=== PATIENT | male | born 1955 | race American Indian/Alaskan Native ===

== ENCOUNTER 2017-04-09 18:04 | Emergency (ER) | payer BC ==
[2017-04-09 18:37] LABS: Basophils % (Auto) 0.8 % (0.0-1.8); Eosinophils % (Auto) 1.9 % (0.0-4.3); Hematocrit 42.4 % (35.5-45.6); Mean Corpuscular HGB Conc 33 % (32-34); Mean Corpuscular Hemoglobin 30 pg (28-32); Mean Corpuscular Volume 92 fl (84-94); Platelet Count 239 K/mm3 (140-440); Red Blood Count 4.63 M/mm3 (3.65-5.03); Red Cell Distribution Width 13.5 % (13.2-15.2); White Blood Count 5.1 K/mm3 (4.5-11.0)
[2017-04-09 18:58] LABS: Anion Gap 20 mmol/L; BUN/Creatinine Ratio 13; Blood Urea Nitrogen 16 mg/dL (9-20); Calcium 9.6 mg/dL (8.4-10.2); Carbon Dioxide 28 mmol/L (22-30); Chloride 99.7 mmol/L (98-107); Glucose 144 mg/dL (75-100); Potassium 3.8 mmol/L (3.6-5.0); Sodium 144 mmol/L (137-145)
--- NOTE | 2017-04-09 20:55 | Emergency Department Report ---
ED Syncope HPI - General Chief Complaint: Weakness Stated Complaint: DIZZINESS Time Seen by Provider: 04/09/17 20:17 Source: patient - History of Present Illness Initial Comments: 62 yo male who comes in today due to a syncopal episode. The patient states that he ate some mayonnaise that hadn't been refrigerated around 1530 with his sandwich at lunch on today. Around 1730, he noticed that he felt lightheaded, dizzy, and hot. He went outside to try and cool off and then had a lucid interval. A coworker called out to him, and he recalls the coworker speaking. He was dazed and couldn't answer at that point. EMS was called. Admits to a history of hypertension. He later stated that he had nausea and diarrhea with the episode. One episode of diarrhea in the ED. Precipitating Factors: Positive: other (sandwich with calvo at lunch on today ) Context: sitting Loss of Consciousness: dazed Current Symptoms: back to normal - Related Data Allergies/Adverse Reactions: Allergies No Known Allergies Allergy (Unverified 04/09/17 18:07) Home Medications: Ambulatory Orders Ondansetron [Zofran Odt] 4 mg PO Q6HR PRN #20 tab.rapdis 04/09/17 ED Review of Systems ROS: Stated complaint: DIZZINESS Other details as noted in HPI Constitutional: denies: chills, fever Eyes: denies: eye pain, eye discharge, vision change ENT: denies: ear pain, throat pain Respiratory: denies: cough, shortness of breath, wheezing Cardiovascular: denies: chest pain, palpitations Endocrine: no symptoms reported Gastrointestinal: as per HPI, nausea, vomiting, diarrhea Genitourinary: denies: urgency, dysuria Musculoskeletal: denies: back pain, joint swelling, arthralgia Skin: denies: rash, lesions Neurological: denies: headache, weakness, paresthesias Psychiatric: denies: anxiety, depression Hematological/Lymphatic: denies: easy bleeding, easy bruising ED Past Medical Hx - Past Medical History Previous Medical History?: Yes Hx Hypertension: Yes - Surgical History Past Surgical History?: No - Social History Smoking Status: Never Smoker Substance Use Type: None - Medications Home Medications: Home Medications Medication Instructions Recorded Confirmed Last Taken Type Ondansetron [Zofran Odt] 4 mg PO Q6HR PRN #20 tab.rapdis 04/09/17 Unknown Rx ED Physical Exam - General Limitations: No Limitations General appearance: alert, in no apparent distress - Head Head exam: Present: atraumatic, normocephalic - Eye Eye exam: Present: normal appearance - ENT ENT exam: Present: mucous membranes moist - Neck Neck exam: Present: normal inspection - Respiratory Respiratory exam: Present: normal lung sounds bilaterally. Absent: respiratory distress - Cardiovascular Cardiovascular Exam: Present: regular rate, normal rhythm. Absent: systolic murmur, diastolic murmur, rubs, gallop - GI/Abdominal GI/Abdominal exam: Present: soft, normal bowel sounds - Extremities Exam Extremities exam: Present: normal inspection - Back Exam Back exam: Present: normal inspection - Neurological Exam Neurological exam: Present: alert, oriented X3 - Psychiatric Psychiatric exam: Present: normal affect, normal mood - Skin Skin exam: Present: warm, dry, intact, normal color. Absent: rash ED Course Vital Signs 04/09/17 04/09/17 04/09/17 18:08 18:09 18:16 Temperature 97.9 F Pulse Rate 80 83 Respiratory 18 18 18 Rate Blood Pressure 145/79 145/79 Blood Pressure [Right] O2 Sat by Pulse 96 98 Oximetry 04/09/17 04/09/17 04/09/17 18:26 18:30 18:46 Temperature 98.7 F Pulse Rate 81 85 81 Respiratory 18 12 17 Rate Blood Pressure 135/79 145/79 Blood Pressure 149/79 [Right] O2 Sat by Pulse 100 96 Oximetry 04/09/17 04/09/17 04/09/17 19:00 19:16 19:30 Temperature Pulse Rate 85 87 83 Respiratory 12 18 14 Rate Blood Pressure 133/76 133/76 135/79 Blood Pressure [Right] O2 Sat by Pulse 97 98 98 Oximetry 04/09/17 04/09/17 04/09/17 19:46 20:00 20:16 Temperature Pulse Rate 83 87 84 Respiratory 15 11 L 15 Rate Blood Pressure 135/79 138/81 138/81 Blood Pressure [Right] O2 Sat by Pulse 99 96 99 Oximetry 04/09/17 04/09/17 04/09/17 20:30 20:46 21:00 Temperature Pulse Rate 86 94 H 83 Respiratory 11 L 20 19 Rate Blood Pressure 126/85 126/85 137/81 Blood Pressure [Right] O2 Sat by Pulse 96 97 98 Oximetry 04/09/17 04/09/17 04/09/17 21:36 21:46 22:00 Temperature Pulse Rate 78 78 73 Respiratory 14 17 9 L Rate Blood Pressure 126/85 126/85 134/84 Blood Pressure [Right] O2 Sat by Pulse 97 98 Oximetry 04/09/17 04/09/17 22:16 22:30 Temperature Pulse Rate 69 66 Respiratory 17 14 Rate Blood Pressure 134/84 134/84 Blood Pressure [Right] O2 Sat by Pulse 98 97 Oximetry - Reevaluation(s) Reevaluation #1: 04/09/17 23:18 No nausea, vomiting, or diarrhea noted currently. Home today with zofran. ED Medical Decision Making - Lab Data Result diagrams: 04/09/17 18:18 04/09/17 18:18 - EKG Data EKG shows normal: sinus rhythm Rate: normal - EKG Data When compared to previous EKG there are: previous EKG unavailable Interpretation: nonspecific ST-T wave mike - Radiology Data Radiology results: report reviewed CT head-no acute changes CXR-no acute changes - Medical Decision Making Food poisoning Gastroenteritis - Differential Diagnosis Food poisoning, gastroenteritis Critical care attestation.: If time is entered above; I have spent that time in minutes in the direct care of this critically ill patient, excluding procedure time. ED Disposition Clinical Impression: Food poisoning, Gastroenteritis due to food toxin Disposition: DC-01 TO HOME OR SELFCARE Is pt being admited?: No Does the pt Need Aspirin: No Condition: Stable Instructions: Food Poisoning (ED), Gastroenteritis (ED) Additional Instructions: Take medicine as prescribed. May alternate gatorade or powerade for nausea, vomiting, and diarrhea until better. Prescriptions: Ondansetron [Zofran Odt] 4 mg PO Q6HR PRN #20 tab.rapdis PRN Reason: Nausea And Vomiting Referrals: PRIMARY CARE, [Referring] - 3-5 Days Time of Disposition: 23:24
--- NOTE | 2017-04-09 21:54 | Cat Scan Report ---
FINAL REPORT EXAM: CT HEAD/BRAIN WO CON HISTORY: syncopal episode TECHNIQUE: Axial noncontrast CT images of the brain. Total exam DLP 1003.91 mGy-cm FINDINGS: There is minimal atrophy. There is normal nowak-white differentiation without midline shift or mass effect. There are no acute extra-axial fluid collections or intraparenchymal blood products. Ventricles and cisterns have normal size and configuration. There is mild anterior ethmoid air cell mucosal thickening. The remaining imaged paranasal sinuses are well aerated. There is bilateral basal ganglia calcification. IMPRESSION: No acute transcortical infarct, mass, or bleed identified. Mild anterior ethmoid air cell disease. Mild atrophy.
--- NOTE | 2017-04-09 22:29 | XRay Report ---
FINAL REPORT EXAM: XR CHEST 1V AP HISTORY: chest pain TECHNIQUE: Single upright portable chest x-ray Comparison: None FINDINGS: Normal heart size. Lungs are clear and well expanded without focal infiltrate or consolidation. Imaged axial skeleton demonstrates bilateral acromioclavicular degenerative arthritis. Mildly prominent ascending aorta. IMPRESSION: No acute cardiopulmonary disease.
[2017-04-09] MEDS ORDERED: NACL 0.9% 500 ML 500 ML IV ONE (23:16)
[2017-04-09] MEDS ORDERED: ZOFRAN IV ONE (23:16)
[2017-04-09 23:39] VITALS: BP 133/78
== END 2017-04-09 23:39 | disposition home or self-care (01) ==
LOC: ED 18:04
DX: A05.9 Bacterial foodborne intoxication, unspecified (principal); I10 Essential (primary) hypertension
CPT/HCPCS: 36415; 70450; 71010; 80048; 84484; 85025; 93005; 93010